=== PATIENT | female | born 1990 | race Caucasian/White ===

== ENCOUNTER → 2018-06-02 | Outpatient (CLI) | payer OTHER ==
[~2018-06-02] MED LIST: IBUP-1027 PO; MULT-208 PO; POLY17PO29 PO
--- NOTE | 2018-06-02 11:12 | KCIC ---
MRI of the lumbar spine without contrast 06/02/2018 CLINICAL HISTORY: Low back pain which radiates down the left leg for 10 years. TECHNIQUE: Unenhanced T1-weighted and T2-weighted sagittal and axial and inversion recovery sagittal images of the lumbar spine were obtained. FINDINGS: Comparison is made to radiographs of the lumbar spine dated 05/13/2018. Minimal S-shaped curvature of the thoracolumbar spine is seen. The morphology and signal characteristics of all the disks of the lumbar spine are within normal limits. The marrow signal of the visualized bony structures is within normal limits. The conus medullaris is normal morphology, position, and signal characteristics. On the axial images throughout the lumbar disc spaces, the changes of very mild degenerative disc disease are seen. These consist of minimal to mild generalized disc bulges, mild degenerative changes involving the facet joints and mild ligamentum flavum hypertrophy. These findings do not result in significant central spinal canal or neural foraminal stenosis at any level. IMPRESSION: The changes of mild degenerative disc disease are seen involving the lumbar spine. These findings do not result in significant central spinal canal or neural foraminal stenosis at any level. Electronically signed by: Sarwat Stinson MD (06/02/2018 11:09 AM) [email or web address]
== END | disposition home or self-care (01) ==
LOC: KCIC MRI 07:50
PROVIDERS: ATTEND Family Medicine
DX: M51.36 Other intervertebral disc degeneration, lumbar region (principal)
CPT/HCPCS: 72148